=== PATIENT | female | born 1990 ===

== ENCOUNTER 2021-04-03 12:45 | Inpatient (IN) | payer OTHER ==
[~2021-04-03] VITALS: Ht 157.5 cm; Wt 4.1 kg
== END 2021-04-12 10:26 | disposition home or self-care (01) | DRG 788 ==
LOC: LDR 04-09 07:32 → SURG-SUITE 04-09 07:32 → O/R 04-09 13:13 → SURG-SUITE 04-09 13:58 → SURH 04-13 12:45
PROVIDERS: ADMIT Specialist; ATTEND Specialist
PROC: 3E0P7VZ Introduction of Hormone into Female Reproductive, Via Natural or Artificial Opening (ICD-10-PCS; 2021-04-09)
PROC: 4A1HXFZ Monitoring of Products of Conception, Cardiac Rhythm, External Approach (ICD-10-PCS; 2021-04-09)
PROC: 10D00Z1 Extraction of Products of Conception, Low, Open Approach (ICD-10-PCS; principal; 2021-04-09 12:00)
DX: O76 Abnormality in fetal heart rate and rhythm complicating labor and delivery (principal); O42.02 Full-term premature rupture of membranes, onset of labor within 24 hours of rupture; Z3A.39 39 weeks gestation of pregnancy; Z37.0 Single live birth

== ENCOUNTER 2024-07-09 10:09 | Inpatient (IN) | payer OTHER ==
[~2024-07-09] VITALS: Ht 157.5 cm; Wt 59.4 kg
[~2024-07-09 10:09] MED LIST: PRENATA CHEWAB1 EACH PO
[2024-07-09 10:13] LABS: HEMATOCRIT 33.5 % (36.0-45.00); HEMOGLOBIN 11.2 g/dL (12.0-15.00); MEAN CELL VOLUME 90.2 fL (80.00-100.00); MEAN CORPUSCULAR HEMOGLOBIN 30.3 pg (27.00-32.0); MEAN CORPUSCULAR HGB CONC 33.6 g/dl (32.0-36.0); PLATELET COUNT 264 K/uL (150-450); RED BLOOD COUNT 3.71 M/uL (4.00-6.00); RED CELL DISTRIBUTION WIDTH 13.6 % (11.5-14.5)
[2024-07-09 10:20] LABS: URINE APPEARANCE Cloudy; URINE BILIRRUBIN Negative (NEGATIVE); URINE BLOOD Negative; URINE COLOR Yellow; URINE GLUCOSE Negative (NEGATIVE); URINE KETONE Negative (NEGATIVE); URINE LEUKOCYTE Trace; URINE NITRATE Negative; URINE PROTEIN 30 (NEGATIVE)
[2024-07-09 10:27] LABS: URINE BACTERIA 1758.8 uL (0.0-1933); URINE EPITHELIAL CELLS 132.6 uL (0.0-38.8); URINE RBC 15.4 uL (0.0-20.8); URINE WBC 57.4 uL (0.0-23.2)
[2024-07-09 10:34] LABS: INR < 0.93; PARTIAL THROMBOPLASTIN TIME 25.1 SECONDS (22.0-34.0); PROTHROMBIN TIME 10.1 SECONDS (9.0-11.5)
[2024-07-09 10:48] LABS: URINE CAST 0.73 uL (0.0-1.40)
[2024-07-09 11:18] LABS: ALBUMIN 2.8 gm/dL (3.4-5.0); BILIRUBIN TOTAL 0.53 mg/dL (0.3-1.2); CREATININE SERUM 0.44 mg/dL (0.55-1.02); GFR 165.71; GLOBULINA 3.9 G/DL (2.4-3.5); POTASSIUM 3.8 mEq/L (3.5-5.1); TOTAL PROTEIN 6.7 gm/dL (6.4-8.2)
[2024-07-17 06:18] VITALS: BP 99/64
[2024-07-17] MEDS ORDERED: CEFAZOLIN SODIUM 1,000 MG VIAL IV ONE (10:15)
[2024-07-17] MEDS ORDERED: OXYTOCIN 10 UNITS/ML VIAL IV ONE (10:15)
[2024-07-17] MEDS ORDERED: ERYTHROMYCIN BASE OPHT 1GM EACH TUBE OP ONE (10:15)
[2024-07-17] MEDS ORDERED: RINGERS SOLUTION,LACTATED 1,000 ML IV SCH (10:30)
[2024-07-17] MEDS ORDERED: MEPERIDINE HCL/PF 50 MG/ML VIAL IM PRN (10:30)
[2024-07-17] MEDS ORDERED: PROMETHAZINE HCL 50 MG/ML AMPUL IM PRN (10:30)
[2024-07-17 13:00] VITALS: BP 131/82
[2024-07-17] MEDS ORDERED: CEFAZOLIN SODIUM 1,000 MG VIAL IV SCH (14:00)
[2024-07-17 16:00] VITALS: BP 94/55
[2024-07-17 20:11] VITALS: BP 104/62
[2024-07-18 01:22] VITALS: BP 110/71
[2024-07-18 01:56] LABS: HEMATOCRIT 33.1 % (36.0-45.00); HEMOGLOBIN 11.2 g/dL (12.0-15.00); MEAN CELL VOLUME 88.6 fL (80.00-100.00); MEAN CORPUSCULAR HGB CONC 33.9 g/dl (32.0-36.0); PLATELET COUNT 237 K/uL (150-450); RED BLOOD COUNT 3.73 M/uL (4.00-6.00)
[2024-07-18 08:46] VITALS: BP 102/66
[2024-07-18] MEDS ORDERED: SIMETHICONE 125 MG CAPSULE PO SCH (10:51)
[2024-07-18] MEDS ORDERED: DOCUSATE SODIUM 100MG CAP PO SCH (10:51)
[2024-07-18] MEDS ORDERED: IBUprofen 800 MG TABLET PO PRN (11:00)
[2024-07-18 15:41] VITALS: BP 92/60
[2024-07-19 01:20] VITALS: BP 95/52
[2024-07-19 08:05] VITALS: BP 99/62
== END 2024-07-19 12:55 | disposition home or self-care (01) | DRG 788 ==
LOC: OB/GYN 07-17 05:40 → O/R 07-17 05:40 → OB/GYN 07-17 07:00
PROVIDERS: ADMIT Specialist; ATTEND Specialist
PROC: 4A1HXCZ Monitoring of Products of Conception, Cardiac Rate, External Approach (ICD-10-PCS; 2024-07-17)
PROC: 10D00Z1 Extraction of Products of Conception, Low, Open Approach (ICD-10-PCS; principal; 2024-07-17 07:00)
DX: O34.211 Maternal care for low transverse scar from previous cesarean delivery (principal); Z3A.38 38 weeks gestation of pregnancy; Z37.0 Single live birth; Z20.822 Contact with and (suspected) exposure to COVID-19